=== PATIENT | male | born 1995 ===

== ENCOUNTER 2019-04-04 20:50 | Emergency (ER) | payer OTHER ==
--- NOTE | 2019-04-04 21:41 | UC ---
Hand/Wrist HPI - HPI Summary HPI Summary: Playing basketball and right 5th finger hit basketball and developed mallet finger. - History Of Current Complaint Chief Complaint: UCUpperExtremity Stated Complaint: FINGER INJURY Time Seen by Provider: 04/04/19 21:22 Hx Obtained From: Patient Onset/Duration: Sudden Onset, Lasting Hours - 3 Severity Initially: Moderate Severity Currently: Mild Pain Intensity: 2 Character Of Pain: Dull Aggravating Factor(s): Movement Alleviating Factor(s): Rest Associated Signs And Symptoms: Positive: Weakness - unable to extend right 5th finger DIP Related History: Dominant Hand Right - Allergies/Home Medications Allergies/Adverse Reactions: Allergies Allergy/AdvReac Type Severity Reaction Status Date / Time No Known Allergies Allergy Verified 04/04/19 21:05 Home Medications: Home Medications NK [No Home Medications Reported] 04/04/19 [History Confirmed 04/04/19] PMH/Surg Hx/FS Hx/Imm Hx Previously Healthy: Yes - Surgical History Surgical History: None - Family History Known Family History: Negative: Diabetes - Social History Occupation: Student Lives: Dormitory/Roommates Alcohol Use: Occasionally Substance Use Type: None Smoking Status (MU): Never Smoked Tobacco Review of Systems All Other Systems Reviewed And Are Negative: Yes Musculoskeletal: Positive: Arthralgia Physical Exam Triage Information Reviewed: Yes Appearance: Well-Appearing, No Pain Distress, Well-Nourished Vital Signs: Initial Vital Signs Temp 99 F 04/04/19 21:00 Pulse 75 04/04/19 21:00 Resp 14 04/04/19 21:00 BP 137/90 04/04/19 21:00 Pulse Ox 97 04/04/19 21:00 Vital Signs Reviewed: Yes Eyes: Positive: Conjunctiva Clear Neck: Positive: No Lymphadenopathy Respiratory Exam: Normal Cardiovascular Exam: Normal Musculoskeletal: Positive: Strength Limited @ - rigth 5th finger DIP extension Neurological Exam: Normal Psychological Exam: Normal Skin Exam: Normal Procedures - Splinting Right 5th Digit Splint: mallet finger splint Diagnostics - Radiology No standard instances Radiology Interpretation Completed By: ED Physician Summary of Radiographic Findings: No fracture with mallet finger deformity Hand/Wrist Course/Dx - Differential Dx/Diagnosis Differential Diagnosis/HQI/PQRI: Contusion, Fracture, Sprain, Strain Provider Diagnosis: Mallet deformity of right little finger Discharge ED - Sign-Out/Discharge Documenting (check all that apply): Patient Departure All imaging exams completed and their final reports reviewed: No - Discharge Plan Condition: Stable Disposition: HOME Patient Education Materials: Ahsan Rahman (ED) Referrals: No Primary Care Phys,NOPCP [Primary Care Provider] - Cynthia Kimbrough MD [Medical Doctor] - 2 Days (Mallet finger deformity) - Billing Disposition and Condition Condition: STABLE Disposition: Home
--- NOTE | 2019-04-05 08:14 | UC ---
- Progress Note Progress Note: Final radiologist reading of right small finger x-ray comes back with anger held in flexion with no fracture. Provider interpretations same from the same date therefore there is no discrepancy. Course/Dx - Diagnoses Provider Diagnoses: Mallet deformity of right little finger Discharge ED - Sign-Out/Discharge Documenting (check all that apply): Patient Departure All imaging exams completed and their final reports reviewed: Yes - Discharge Plan Condition: Stable Disposition: HOME Patient Education Materials: Jammed Finger (ED) Referrals: No Primary Care Phys,NOPCP [Primary Care Provider] - Cynthia Kimbrough MD [Medical Doctor] - 2 Days (Mallet finger deformity) - Billing Disposition and Condition Condition: STABLE Disposition: Home
== END 2019-04-04 21:58 | disposition home or self-care (01) ==
LOC: UCEAST 20:50
DX: M20.011 Mallet finger of right finger(s) (principal)
CPT/HCPCS: 73140; 99201; G0463